=== PATIENT | male | born 1980 | race African-American/Black ===

== ENCOUNTER 2016-07-07 01:24 | Emergency (ER) | payer OTHER ==
[~2016-07-07 01:24] MED LIST: FAMVIR250 MG PO; IBUPROFEN PO; VICODIN PO
== END 2016-07-07 01:36 | disposition home or self-care (01) ==
LOC: SED 01:24
DX: G89.29 Other chronic pain (principal); M25.561 Pain in right knee; I25.10 Atherosclerotic heart disease of native coronary artery without angina pectoris; E78.5 Hyperlipidemia, unspecified; I10 Essential (primary) hypertension; Z88.5 Allergy status to narcotic agent
CPT/HCPCS: 87651; 99283